=== PATIENT | male | born 1985 | race Caucasian/White ===

== ENCOUNTER 2023-04-06 00:03 | Emergency (ER) | payer SELFPAY ==
[2023-04-06 00:19] VITALS: BP 138/98; PULSE 68; RESP 15; TEMP 36.8; O2SAT 99
[2023-04-06 00:54] LABS: Basophils Percent Auto 0.6 % (0.2-1.2); Eosinophils Absolute Auto 0.1 K/mm3 (0-0.3); Eosinophils Percent Auto 0.9 % (0-4.4); Hematocrit 46.4 % (42.0-52.0); Hemoglobin 15.7 g/dL (14.0-18.0); Immature Granulocyte Absolute 0.02 K/mm3 (0.00-0.031); Immature Granulocyte Percent A 0.3 % (0-0.5); Lymphocytes Absolute Auto 1.18 K/mm3 (0.9-3.2); Lymphocytes Percent Auto 17.1 % (18.3-44.2); Mean Corpuscular HGB Conc 33.8 g/dl (32-36); Mean Corpuscular Hemoglobin 31.8 pg (26-34); Mean Corpuscular Volume 94.1 fl (80-100); Mean Platelet Volume 11.3 fl (7.4-10.4); Monocytes Absolute Auto 0.4 K/mm3 (0.1-0.6); Monocytes Percent Auto 5.6 % (2.6-8.5); Neutrophils Absolute Auto 5.2 K/mm3 (1.3-6.7); Neutrophils Percent Auto 75.5 % (45.5-73.1); Platelet Count Result 244 k/mm3 (150-375); Red Blood Count 4.93 M/mm3 (4.6-6.20); Red Cell Distribution Width 12.4 % (11.5-14.5); White Blood Count 6.9 K/mm3 (4.5-10.0)
[2023-04-06] MEDS: LORazepam (*CRX) 1 MG TABLET PO (00:58)
[2023-04-06 01:01] LABS: Appearance Urine Clear (Clear); Bacteria Urine None Seen /hpf; Bilirubin Urine Negative (Negative); Blood Urine Negative (Negative); Color Urine Yellow (Yellow); Glucose Urine UA Negative (Negative); Ketones Urine Trace mg/dL (Negative); Leukocyte Esterase Ur Negative LEU/UL (Negative); Nitrate Urine Negative (Negative); Protein Urine Trace mg/dL (Negative); RBC Urine 0-2 /hpf (0-2); Specific Grav Ur 1.018 (1.001-1.035); Squamous Epithelial Cell Urine None seen /hpf (Few); Urobilinogen Urine 0.2 mg/dL (<2.0); WBC Urine 0-5 /hpf; pH Urine 5.5 (5.0-9.0)
[2023-04-06 01:08] LABS: Add Urine Microscopic? YES
[2023-04-06 01:13] LABS: Amphetamine Screen Urine Negative (Negative); Barbiturate Screen Urine Negative (Negative); Benzodiazepines Screen Urine Negative (Negative); Cannabinoid Screen Urine Positive (Negative); Cocaine Screen Urine Negative (Negative); Methadone Screen Urine Negative (Negative); Opiate Screen Urine Negative (Negative); Phencyclidine Screen Urine Negative (Negative)
[2023-04-06 01:21] LABS: Ethanol < 10 mg/dL (<10)
[2023-04-06 01:22] LABS: Alanine Aminotransferase 78 U/L (6-50); Albumin Level 5.1 g/dL (3.5-5.1); Alkaline Phosphatase 58 U/L (38-126); Anion Gap 10 mmol/L (8-16); Aspartate Amino Transferase 42 U/L (17-59); Bilirubin,Total 0.8 mg/dL (0.2-1.3); Blood Urea Nitrogen 10 mg/dL (9-20); Calcium 9.7 mg/dL (8.4-10.2); Carbon Dioxide 27 mmol/L (22-30); Chloride 104 mmol/L (98-107); Estimated CRCL calculation 135 ml/min; Estimated Glomerular Filt Rate > 60; Glucose 110 mg/dL (65-110); Sodium 141 mmol/L (137-145)
[2023-04-06 01:34] LABS: Influenza A QL RT-PCR Negative (Negative); Influenza B QL RT-PCR Negative (Negative); RSV RNA, RT-PCR Negative (Negative); SARS-CoV-2 RNA PCR Negative (Negative)
--- NOTE | 2023-04-06 02:39 | ED.GENADULT ---
HPI - General Adult General Chief complaint: Psychiatric Symptoms Stated complaint: SI Time Seen by Provider: 04/06/23 00:16 History of Present Illness HPI narrative: this is a 37-year-old male presenting ED with chief complaint of suicidal ideation. Patient was upset because his grandfather who he did not like very much and was buried next to his father who he liked very much. He then got into an argument with his and felt that she was listening to. He then grabbed his gone through in his car saying that he may harm himself. Police were notified he was brought to the emergency department for evaluation. Patient is currently denying SI HI. He denies use of drugs or alcohol. Related Data Allergies Allergy/AdvReac Type Severity Reaction Status Date / Time No Known Allergies Allergy Verified 04/06/23 00:58 [facility] Social History Social History Substance use type: marijuana Exam Narrative: APPEARANCE: No apparent distress. Head: atraumatic. EYES: EOMI, NOSE: Atraumatic NECK: Trachea midline RESPIRATORY: No increased rate of breathing, CTAB CARDIOVASCULAR: RRR, ABDOMINAL: Non-distended MUSCULOSKELETAl: No obvious deformities NEURO: Alert. Moving 4/4 extremities SKIN:: Warm, dry. Normal color PSYCHIATRIC: Normal affect Course Vital Signs Vital signs: Vital Signs Temperature 98.3 F 04/06/23 00:19 Pulse Rate 68 04/06/23 00:19 Respiratory Rate 15 04/06/23 00:19 Blood Pressure 138/98 H 04/06/23 00:19 Pulse Oximetry 99 04/06/23 00:19 Oxygen Delivery Room Air 04/06/23 00:19 Temperature 98.3 F 04/06/23 00:19 Pulse Rate 68 04/06/23 00:19 Respiratory Rate 15 04/06/23 00:19 Blood Pressure 138/98 H 04/06/23 00:19 Pulse Oximetry 99 04/06/23 00:19 Oxygen Delivery Room Air 04/06/23 00:19 Medical Decision Making MDM Narrative Medical decision making narrative: -Course: 29-year-old male presenting with suicidal ideation. medically cleared for crisis evaluation. patient is evaluated by crisis and was safety contracted. Patient be discharged with outpatient follow-up. -DDX includes but is not limited to: SI, depression, adjustment disorder -Independent interpretation of studies: workup negative. TSH 8. Free T4 pending. -Discussion of Management/Consultants: Crisis Center -Shared decision making / Disposition:discharged. Vital Signs Vital Signs: Vital Signs Temperature 98.3 F 04/06/23 00:19 Pulse Rate 68 04/06/23 00:19 Respiratory Rate 15 04/06/23 00:19 Blood Pressure 138/98 H 04/06/23 00:19 Pulse Oximetry 99 04/06/23 00:19 Oxygen Delivery Room Air 04/06/23 00:19 Temperature 98.3 F 04/06/23 00:19 Pulse Rate 68 04/06/23 00:19 Respiratory Rate 15 04/06/23 00:19 Blood Pressure 138/98 H 04/06/23 00:19 Pulse Oximetry 99 04/06/23 00:19 Oxygen Delivery Room Air 04/06/23 00:19 Lab Data 04/06/23 00:36 04/06/23 00:35 Labs: Lab Results 04/06/23 04/06/23 Range/Units 00:35 00:36 WBC 6.9 (4.5-10.0) K/mm3 RBC 4.93 (4.6-6.20) M/mm3 Hgb 15.7 (14.0-18.0) g/dL Hct 46.4 (42.0-52.0) % MCV 94.1 (80-100) fl MCH 31.8 (26-34) pg MCHC 33.8 (32-36) g/dl RDW 12.4 (11.5-14.5) % Plt Count 244 (150-375) k/mm3 MPV 11.3 H (7.4-10.4) fl Immature Gran % (Auto) 0.3 (0-0.5) % Neut % (Auto) 75.5 H (45.5-73.1) % Lymph % (Auto) 17.1 L (18.3-44.2) % [place] % (Auto) 5.6 (2.6-8.5) % Eos % (Auto) 0.9 (0-4.4) % Baso % (Auto) 0.6 (0.2-1.2) % Lymph # (Auto) 1.18 (0.9-3.2) K/mm3 [place] # (Auto) 0.4 (0.1-0.6) K/mm3 Eos # (Auto) 0.1 (0-0.3) K/mm3 Baso # (Auto) 0.0 (0.0-0.1) K/mm3 Abs Immat Gran (auto) 0.02 (0.00-0.031) K/mm3 Absolute Neuts (auto) 5.2 (1.3-6.7) K/mm3 Absolute Nucleated RBC 0.0 (0.0-0.012) K/mm3 Nucleated RBC % 0.0 (0.0-0.2) % Sodium
[2023-04-06 03:01] LABS: Free T4 Free Thyroxine Reflex 0.95 ng/dL (0.78-2.19)
[2023-04-06 03:50] LABS: Total Triiodothyronine (T3) 1.69 NG/ML (0.97-1.69)
[2023-04-06 04:35] VITALS: BP 134/66; PULSE 72; RESP 15; O2SAT 100
== END 2023-04-06 04:35 | disposition home or self-care (01) ==
PROVIDERS: Emergency Provider Emergency Medicine
DX: F32.A Depression, unspecified (principal); F43.20 Adjustment disorder, unspecified; Z11.52 Encounter for screening for COVID-19
CPT/HCPCS: 36415; 80053; 80307; 81001; 84439; 84443; 84480; 85025; 87637; 99284; A9270